=== PATIENT | male | born 1965 | race Caucasian/White ===

== ENCOUNTER 2016-10-14 21:05 | Emergency (ER) | payer MEDICAID ==
[2016-10-14 21:20] VITALS: BP 150/77
[2016-10-14] MEDS ORDERED: Ibuprofen 800 MG Tab PO ONE (21:35)
--- NOTE | 2016-10-14 21:37 | EDM.PDOC ---
ED HPI GENERAL MEDICAL PROBLEM - General Chief Complaint: Lower Extremity Injury/Pain Stated Complaint: SWOLLEN RIGHT CAMERON Time Seen by Provider: 10/14/16 21:31 Source of Information: Reports: Patient History Limitations: Reports: No Limitations - History of Present Illness INITIAL COMMENTS - FREE TEXT/NARRATIVE: Was on a wagon and jumped down landing on right cameron this evening about 7pm. Pain has worsened since then. Has not taken anything for pain. Onset: Today, Sudden Onset Date: 10/14/16 Onset Time: 19:30 Location: Reports: Lower Extremity, Right Quality: Reports: Ache Severity: Mild Improves with: Reports: None Worsens with: Reports: None Context: Reports: Trauma Associated Symptoms: Reports: No Other Symptoms - Related Data Allergies Allergy/AdvReac Type Severity Reaction Status Date / Time tetanus toxoid, adsorbed Allergy Edema Verified 09/20/16 15:06 Home Meds: Home Meds Ezetimibe [Zetia] 5 mg PO DAILY 01/23/13 [History] Ibuprofen [Advil] 200 mg PO Q6H PRN 01/23/13 [History] Rosuvastatin [Crestor] 20 mg PO DAILY 01/23/13 [History] Verapamil [Verapamil ER] 240 mg PO BID 01/23/13 [History] Doxazosin [Doxazosin Mesylate] 2 mg PO BEDTIME 02/13/13 [History] Hydrochlorothiazide 12.5 mg PO DAILY 05/25/14 [History] Past Medical History - Past Health History Medical/Surgical History: Denies Medical/Surgical History Cardiovascular History: Reports: High Cholesterol, Hypertension - Past Surgical History GI Surgical History: Reports: Cholecystectomy Other Musculoskeletal Surgeries/Procedures:: fractures Social & Family History - Tobacco Use Smoking Status *Q: Never Smoker Second Hand Smoke Exposure: No - Caffeine Use Caffeine Use: Reports: Soda - Alcohol Use Days Per Week of Alcohol Use: 0 - Recreational Drug Use Recreational Drug Use: No Review of Systems - Review of Systems Review Of Systems: See Below Constitutional: Reports: No Symptoms Ears: Reports: No Symptoms Nose: Reports: No Symptoms Mouth/Throat: Reports: No Symptoms Respiratory: Reports: No Symptoms Cardiovascular: Reports: No Symptoms GI/Abdominal: Reports: No Symptoms Musculoskeletal: Reports: Leg Pain Skin: Reports: Bruising ED EXAM, GENERAL - Physical Exam Exam: See Below Exam Limited By: No Limitations General Appearance: Alert, WD/WN, No Apparent Distress Ears: Normal External Exam, Normal Canal, Hearing Grossly Normal, Normal TMs Nose: Normal Inspection, Normal Mucosa, No Blood Throat/Mouth: Normal Inspection, Normal Lips, Normal Teeth, Normal Gums, Normal Oropharynx, Normal Voice, No Airway Compromise Head: Atraumatic, Normocephalic Respiratory/Chest: No Respiratory Distress, Lungs Clear, Normal Breath Sounds, No Accessory Muscle Use, Chest Non-Tender Cardiovascular: Normal Peripheral Pulses, Regular Rate, Rhythm, No Edema, No Gallop, No JVD, No Murmur, No Rub Extremities: Leg Pain (anterior cameron with swelling, early bruising noted. Tender over the hematoma, but not the ankle or lower leg area. ROM to ankle and right lower leg normal. ) Neurological: Alert, Oriented, CN II-XII Intact, Normal Cognition, Normal Gait, Normal Reflexes, No Motor/Sensory Deficits Skin Exam: Other (early bruising and hematoma forming to right lower leg) Course - Vital Signs Last Recorded V/S: Last Vital Signs Temp 98.0 F 10/14/16 21:25 Pulse 60 10/14/16 21:25 Resp 20 10/14/16 21:25 BP 150/77 H 10/14/16 21:25 Pulse Ox 95 10/14/16 21:25 Departure - Departure Time of Disposition: 21:39 Disposition: Home, Self-Care 01 Condition: Good Clinical Impression: Traumatic hematoma of right lower leg Qualifiers: Encounter type: initial encounter Qualified Code(s): S80.11XA - Contusion of right lower leg, initial encounter - Discharge Information Instructions: Crush Injury, Fingers or Toes, [id number] Referrals: Dedrick Garcia Sr, MD [Primary Care Provider] - Additional Instructions: Discussed the importance of ice, Ibuprofen and elevation over the next several days. May consider taylor wrap to compress if tolerates. To take aspirin 81mg daily until resolved. Reviewed s/s of blood clot that warrant sooner evaluation. Wound care also may include bacitracin to wound. - Problem List & Annotations (1) Traumatic hematoma of right lower leg SNOMED Code(s): 988302772 Code(s): S80.11XA - CONTUSION OF RIGHT LOWER LEG, INITIAL ENCOUNTER Status : Acute Priority: Low Current Visit: Yes Qualifiers: Encounter type: initial encounter Qualified Code(s): S80.11XA - Contusion of right lower leg, initial encounter
[2016-10-14] MEDS ORDERED: Bacitracin Oint 1 GM U/D Packet TOP ONE (21:39)
== END 2016-10-14 21:50 | disposition home or self-care (01) ==
LOC: JP.ED 21:05
DX: S80.11XA Contusion of right lower leg, initial encounter (principal); I10 Essential (primary) hypertension; E78.00 Pure hypercholesterolemia, unspecified; Z79.899 Other long term (current) drug therapy; Z90.49 Acquired absence of other specified parts of digestive tract; V48.4XXA Person boarding or alighting a car injured in noncollision transport accident, initial encounter
CPT/HCPCS: 99284; A9270

== ENCOUNTER 2017-03-11 11:42 | Emergency (ER) | payer MEDICAID ==
--- NOTE | 2017-03-11 12:36 | EDM.PDOC ---
ED HPI GENERAL MEDICAL PROBLEM - General Chief Complaint: Lower Extremity Injury/Pain Stated Complaint: LEFT CALF PAIN Time Seen by Provider: 03/11/17 12:20 Source of Information: Reports: Patient, Old Records History Limitations: Reports: No Limitations - History of Present Illness INITIAL COMMENTS - FREE TEXT/NARRATIVE: 51 yo male with a pHx of HTN/hyperlipidemia presents with L calf pain. Is worried about DVT. Has no swelling or increased warmth. His mother had a DVT so he is concerned. Did have a recent road trip. Has some restless legs from time to time. No recent exertion or cramps that he recalls. Pain got better yesterday over the course of the day with use, worse again this morning. Onset Date: 03/09/17 Duration: Day(s):, Waxing/Waning (Worse early in the day.) Location: Reports: Lower Extremity, Left Quality: Reports: Ache (tight) Severity: Moderate Improves with: Reports: Other (? 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 (see below) (none) Left Lower Leg Pain Score (Numeric/FACES): 8 - Related Data Allergies Allergy/AdvReac Type Severity Reaction Status Date / Time tetanus toxoid, adsorbed Allergy Edema Verified 03/11/17 11:55 Home Meds: Home Meds Ezetimibe [Zetia] 5 mg PO BEDTIME 01/23/13 [History] Rosuvastatin [Crestor] 20 mg PO DAILY 01/23/13 [History] Verapamil [Verapamil ER] 240 mg PO BID 01/23/13 [History] Doxazosin [Doxazosin Mesylate] 2 mg PO BEDTIME 02/13/13 [History] Hydrochlorothiazide 12.5 mg PO DAILY 05/25/14 [History] Rivaroxaban [Xarelto] 15 mg PO Q12H #42 tablet 03/11/17 [Rx] Past Medical History - Past Health History Medical/Surgical History: Denies Medical/Surgical History HEENT History: Reports: Impaired Vision Cardiovascular History: Reports: High Cholesterol, Hypertension Musculoskeletal History: Reports: Back Pain, Chronic, Fracture, Other (See Below ) Other Musculoskeletal History: R shoulder pain. lt shoulder pain Neurological History: Reports: Other (See Below) Other Neuro History: herniated discs in lower back - Infectious Disease History Infectious Disease History: Reports: Chicken Pox, Mumps - Past Surgical History GI Surgical History: Reports: Cholecystectomy, Colonoscopy Other Musculoskeletal Surgeries/Procedures:: fractures Social & Family History - Tobacco Use Smoking Status *Q: Never Smoker Second Hand Smoke Exposure: No - Caffeine Use Caffeine Use: Reports: Soda - Alcohol Use Days Per Week of Alcohol Use: 0 - Recreational Drug Use Recreational Drug Use: No Review of Systems - Review of Systems Review Of Systems: See Below Constitutional: Reports: No Symptoms Respiratory: Reports: No Symptoms, Cough GI/Abdominal: Reports: No Symptoms Musculoskeletal: Reports: Leg Pain (L calf ), Muscle Pain (L calf), Muscle Stiffness (L calf). Denies: Joint Swelling Skin: Reports: No Symptoms Neurological: Reports: No Symptoms ED EXAM, GENERAL - Physical Exam Exam: See Below Exam Limited By: No Limitations General Appearance: Alert, WD/WN, No Apparent Distress Eye Exam: Bilateral Eye: Normal Inspection Ears: Normal External Exam, Normal Canal, Hearing Grossly Normal Ear Exam: Bilateral Ear: Auricle Normal Nose: Normal Inspection, Normal Mucosa, No Blood Throat/Mouth: Normal Inspection, Normal Lips, Normal Voice, No Airway Compromise Head: Atraumatic, Normocephalic Neck: Normal Inspection Respiratory/Chest: No Respiratory Distress, Lungs Clear, Normal Breath Sounds, No Accessory Muscle Use Cardiovascular: Regular Rate, Rhythm, No Edema Extremities: Normal Inspection, Normal Range of Motion, No Pedal Edema, Other ( L calf tender, no swelling or increased warmth. ). No: Non-Tender Neurological: Alert, Oriented, CN II-XII Intact, Normal Cognition, No Motor/ Sensory Deficits Psychiatric: Normal Affect, Normal Mood Skin Exam: Warm, Dry, Intact, Normal Color, No Rash Lymphatic: No Adenopathy Course - Vital Signs Last Recorded V/S: Last Vital Signs Temp 36.9 C 03/11/17 12:02 Pulse 69 03/11/17 14:09 Resp 16 03/11/17 14:09 BP 128/89 03/11/17 14:09 Pulse Ox 95 03/11/17 14:09 - Orders/Labs/Meds Orders: Active Orders 24 hr Category Date Time Status VL Duplex Lwr Ext Veins Ltd Lt [US] Stat Exams 03/11/17 13:04 Taken Labs: Laboratory Tests 03/11/17 03/11/17 Range/Units 12:39 12:39 D-Dimer, Quantitative 3720 H (0.0-400.0) ng/mL Sodium 139 L (140-148) mmol/L Potassium 3.8 (3.6-5.2) mmol/L Chloride 106 (100-108) mmol/L Carbon Dioxide 25 (21-32) mmol/L Anion Gap 11.8 (5.0-14.0) mmol/L BUN 21 H (7-18) mg/dL Creatinine 1.0 (0.8-1.3) mg/dL Est Cr Clr Drug Dosing 79.87 mL/min Estimated GFR (MDRD) > 60 (>60) Glucose 106 (74-106) mg/dL Calcium 8.5 (8.5-10.1) mg/dL Magnesium 2.0 (1.8-2.4) mg/dL Meds: Medications Discontinued Medications Generic Name Dose Route Start Last Admin Trade Name Freq PRN Reason Stop Dose Admin Rivaroxaban 15 mg 03/11/17 14:55 Xarelto PO 03/11/17 14:56 NOW STA Departure - Departure Time of Disposition: 15:05 Disposition: Home, Self-Care 01 Condition: Fair Clinical Impression: DVT (deep venous thrombosis) Qualifiers: DVT location: lower extremity Affected thrombotic vein of extremity: unspecified vein of extremity Chronicity: acute Laterality: left Qualified Code( s): I82.402 - Acute embolism and thrombosis of unspecified deep veins of left lower extremity - Discharge Information Prescriptions: Rivaroxaban [Xarelto] 15 mg PO Q12H #42 tablet Referrals: Dedrick Garcia Sr, MD [Primary Care Provider] - Forms: ED Department Discharge, ED Return to Work/School Form Additional Instructions: Xarelto 15 mg every 12 hrs with food for 21 days, then 20 mg daily. Elevate the affected leg above the heart. Avoid standing around. Recheck with your doctor later in the week. - My Orders Last 24 Hours: My Active Orders 03/11/17 13:04 VL Duplex Lwr Ext Veins Ltd Lt [US] Stat - Assessment/Plan Last 24 Hours: My Active Orders 03/11/17 13:04 VL Duplex Lwr Ext Veins Ltd Lt [US] Stat
[2017-03-11 14:12] VITALS: BP 128/89
[2017-03-11] MEDS ORDERED: Rivaroxaban 15 MG Tab PO STA (14:55)
== END 2017-03-11 15:28 | disposition home or self-care (01) ==
LOC: JP.ED 11:42
DX: I82.402 Acute embolism and thrombosis of unspecified deep veins of left lower extremity (principal); I10 Essential (primary) hypertension; E78.00 Pure hypercholesterolemia, unspecified; Z79.899 Other long term (current) drug therapy; Z88.7 Allergy status to serum and vaccine
CPT/HCPCS: 36415; 80048; 83735; 85379; 93971; 99284; A9270

== ENCOUNTER 2017-03-31 11:10 | Emergency (ER) | payer MEDICAID ==
[2017-03-31 11:30] VITALS: BP 136/93
--- NOTE | 2017-03-31 11:56 | EDM.PDOC ---
ED HPI GENERAL MEDICAL PROBLEM - General Chief Complaint: General Stated Complaint: HIGH BP/LOW PULSE Time Seen by Provider: 03/31/17 11:45 Source of Information: Reports: Patient, Old Records, RN History Limitations: Reports: No Limitations - History of Present Illness INITIAL COMMENTS - FREE TEXT/NARRATIVE: 51 yo male is here for 2 reasons, a cough and a slow HR. He is on verapamil for HTN and was recently started on Xarelto for a DVT. The pharmacist noted that is his HR gets into the 50's he should be seen right away. He has been on the Xarelto for almost 3 weeks and is feeling fine, but noted a HR yesterday and today at times dipping into the 50's so thought he should be seen. Regarding the cough Dr. Garcia had him on Amox and this week switched him to Duricef. He has been on it for 2 days and still has the cough. He has no pleuritic pain, no fever, no SOB, and no wheezing. He is not on an ACEI. 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 (see below) (on Xarelto and Duricef) Denies Pain Score (Numeric/FACES): 0 - Related Data Allergies Allergy/AdvReac Type Severity Reaction Status Date / Time tetanus toxoid, adsorbed Allergy Edema Verified 03/31/17 11:24 Home Meds: Home Meds Ezetimibe [Zetia] 5 mg PO BEDTIME 01/23/13 [History] Rosuvastatin [Crestor] 20 mg PO DAILY 01/23/13 [History] Verapamil [Verapamil ER] 240 mg PO BID 01/23/13 [History] Doxazosin [Doxazosin Mesylate] 2 mg PO BEDTIME 02/13/13 [History] Hydrochlorothiazide 12.5 mg PO DAILY 05/25/14 [History] Rivaroxaban [Xarelto] 15 mg PO Q12H #42 tablet 03/11/17 [Rx] Cefadroxil [Duricef] 500 mg PO BID 03/31/17 [History] Past Medical History - Past Health History Medical/Surgical History: Denies Medical/Surgical History HEENT History: Reports: Impaired Vision Cardiovascular History: Reports: High Cholesterol, Hypertension Musculoskeletal History: Reports: Back Pain, Chronic, Fracture, Other (See Below ) Other Musculoskeletal History: R shoulder pain blood clot l leg. lt shoulder pain Neurological History: Reports: Other (See Below) Other Neuro History: herniated discs in lower back - Infectious Disease History Infectious Disease History: Reports: Chicken Pox - Past Surgical History GI Surgical History: Reports: Cholecystectomy, Colonoscopy Other Musculoskeletal Surgeries/Procedures:: fractures Social & Family History - Tobacco Use Smoking Status *Q: Never Smoker Second Hand Smoke Exposure: No - Caffeine Use Caffeine Use: Reports: Soda - Alcohol Use Days Per Week of Alcohol Use: 0 - Recreational Drug Use Recreational Drug Use: No ED ROS GENERAL - Review of Systems Review Of Systems: See Below Constitutional: Reports: No Symptoms HEENT: Reports: No Symptoms Respiratory: Reports: Cough, Sputum (at times). Denies: Shortness of Breath, Wheezing, Pleuritic Chest Pain, Hemoptysis Cardiovascular: Reports: No Symptoms Endocrine: Reports: No Symptoms GI/Abdominal: Reports: No Symptoms : Reports: No Symptoms Musculoskeletal: Reports: No Symptoms Skin: Reports: No Symptoms Neurological: Reports: No Symptoms ED EXAM, GENERAL - Physical Exam Exam: See Below Exam Limited By: No Limitations General Appearance: Alert, WD/WN, No Apparent Distress Eye Exam: Bilateral Eye: Normal Inspection Ears: Normal External Exam, Normal Canal, Hearing Grossly Normal, Normal TMs Ear Exam: Bilateral Ear: Auricle Normal, Canal Normal, TM normal Nose: Normal Inspection, Normal Mucosa, No Blood Throat/Mouth: Normal Inspection, Normal Lips, Normal Oropharynx, Normal Voice, No Airway Compromise Head: Atraumatic, Normocephalic Neck: Normal Inspection, Supple Respiratory/Chest: No Respiratory Distress, Lungs Clear, Normal Breath Sounds Cardiovascular: Regular Rate, Rhythm, No Edema. No: Bradycardia GI/Abdominal: Normal Bowel Sounds, Soft, Non-Tender Back Exam: Normal Inspection Extremities: Normal Inspection Neurological: Alert, Oriented, CN II-XII Intact, Normal Cognition, No Motor/ Sensory Deficits Psychiatric: Normal Affect, Normal Mood Skin Exam: Warm, Dry, Intact, Normal Color, No Rash Course - Vital Signs Last Recorded V/S: Last Vital Signs Temp 35.9 C 03/31/17 11:36 Pulse 74 03/31/17 11:36 Resp 16 03/31/17 11:36 BP 136/93 H 03/31/17 11:36 Pulse Ox 96 03/31/17 11:36 Departure - Departure Time of Disposition: 11:57 Disposition: Home, Self-Care 01 Condition: Good Clinical Impression: Cough - Discharge Information Referrals: Dedrick Garcia Sr, MD [Primary Care Provider] - Forms: ED Department Discharge Additional Instructions: Continue current medications. Recheck with your provider next week. Return for fever or SOB or bloody sputum.
== END 2017-03-31 12:22 | disposition home or self-care (01) ==
LOC: JP.ED 11:10
DX: R05 Cough (principal); I10 Essential (primary) hypertension; E78.00 Pure hypercholesterolemia, unspecified; Z79.899 Other long term (current) drug therapy; Z88.7 Allergy status to serum and vaccine
CPT/HCPCS: 99283

== ENCOUNTER 2017-06-29 08:29 | Emergency (ER) | payer MEDICAID ==
[2017-06-29] MEDS ORDERED: Ketorolac 60 MG/2 ML SDV IM ONE (09:21)
--- NOTE | 2017-06-29 09:22 | EDM.PDOC ---
ED HPI GENERAL MEDICAL PROBLEM - General Chief Complaint: Cardiovascular Problem Stated Complaint: BLOOD PRESSUE IS HIGH AND HEADACHE Time Seen by Provider: 06/29/17 09:10 Source of Information: Reports: Patient, RN Notes Reviewed History Limitations: Reports: No Limitations - History of Present Illness INITIAL COMMENTS - FREE TEXT/NARRATIVE: 51-year-old gentleman presents to the emergency department today complaint of palpitations and headache as well as poorly controlled blood pressure, he states over the last couple days she's been feeling poorly has had issues with his blood pressure diastolic is 110 systolics 160s, did feel palpitations yesterday is currently on blood pressure medications which she takes. This is not the worst headache of his life - Related Data Allergies Allergy/AdvReac Type Severity Reaction Status Date / Time tetanus toxoid, adsorbed Allergy Edema Verified 06/29/17 08:56 Home Meds: Home Meds Rosuvastatin [Crestor] 20 mg PO DAILY 01/23/13 [History] Doxazosin [Doxazosin Mesylate] 2 mg PO BEDTIME 02/13/13 [History] Hydrochlorothiazide 12.5 mg PO DAILY 05/25/14 [History] Rivaroxaban [Xarelto] 15 mg PO Q12H #42 tablet 03/11/17 [Rx] Lisinopril 10 mg PO DAILY #30 tablet 06/29/17 [Rx] Past Medical History HEENT History: Reports: Impaired Vision Cardiovascular History: Reports: High Cholesterol, Hypertension Musculoskeletal History: Reports: Back Pain, Chronic, Other (See Below) Other Musculoskeletal History: bilat shoulder pain Neurological History: Reports: Other (See Below) Other Neuro History: herniated discs in lower back - Infectious Disease History Infectious Disease History: Reports: Chicken Pox - Past Surgical History GI Surgical History: Reports: Cholecystectomy, Colonoscopy Other Musculoskeletal Surgeries/Procedures:: fractures Social & Family History - Tobacco Use Smoking Status *Q: Never Smoker - Caffeine Use Caffeine Use: Reports: Soda ED ROS GENERAL - Review of Systems Review Of Systems: See Below Constitutional: Reports: No Symptoms HEENT: Reports: No Symptoms Respiratory: Reports: No Symptoms Cardiovascular: Reports: Blood Pressure Problem GI/Abdominal: Reports: No Symptoms : Reports: No Symptoms Musculoskeletal: Reports: No Symptoms Skin: Reports: No Symptoms Neurological: Reports: Headache ED EXAM, GENERAL - Physical Exam Exam: See Below Free Text/Narrative:: General: Male, not in any distress, alert and oriented x3 HEENT: head is atraumatic normocephalic, eyes pupils equal round reactive to light, sclera clear no conjunctivitis appreciated. Ears tympanic membranes clear and conde landmarks and light reflex are present bilaterally canals are clear. Nose no septal deviation, nares are clear, no blood present. Mouth mucosa is moist and pink no erythema or exudate noted in soft palate, tongue is midline uvula is midline, dentition is intact. Neck: Supple no thyromegaly no tracheal deviation. Nodes: Cervical nodes subclavicular nodes nontender no palpable lymphadenopathy noted. Lungs: clear to auscultation bilaterally with symmetrical respirations, no adventitious noise appreciated. CV: Regular rate and rhythm S1 and S2 appreciated no murmurs rubs or gallops noted. Abdomen: Soft, nontender, no palpable masses or organomegaly appreciated, no distention no guarding bowel sounds are present, . Neuro: Cranial nerves II through XII grossly intact Skin: Warm and dry, intact Extremities: No lower extremity edema appreciated, Course - Vital Signs Last Recorded V/S: Last Vital Signs Temp 96.1 F 06/29/17 09:07 Pulse 64 06/29/17 10:43 Resp 16 06/29/17 09:07 BP 147/90 H 06/29/17 10:43 Pulse Ox 100 06/29/17 10:43 - Orders/Labs/Meds Orders: Active Orders 24 hr Category Date Time Status Cardiac Monitoring [RC] .As Directed Care 06/29/17 09:17 Active EKG Documentation Completion [RC] ASDIRECTED Care 06/29/17 09:19 Active UA W/MICROSCOPIC [URIN] Stat Lab 06/29/17 10:00 Ordered EKG 12 Lead [EK] Stat Ther 06/29/17 09:18 Ordered Labs: Laboratory Tests 06/29/17 06/29/17 06/29/17 Range/Units 09:20 09:20 10:00 WBC 5.9 (4.5-11.0) K/uL RBC 5.08 (4.30-5.90) M/uL Hgb 15.3 H (12.0-15.0) g/dL Hct 44.7 (40.0-54.0) % MCV 88 (80-98) fL MCH 30 (27-31) pg MCHC 34 (32-36) % Plt Count 173 (150-400) K/uL Neut % (Auto) 64 (36-66) % Lymph % (Auto) 25 (24-44) % Carter % (Auto) 9 H (2-6) % Eos % (Auto) 1 L (2-4) % Baso % (Auto) 0 (0-1) % Sodium 141 (140-148) mmol/L Potassium 3.4 L (3.6-5.2) mmol/L Chloride 106 (100-108) mmol/L Carbon Dioxide 27 (21-32) mmol/L Anion Gap 11.4 (5.0-14.0) mmol/L BUN 24 H (7-18) mg/dL Creatinine 1.2 (0.8-1.3) mg/dL Est Cr Clr Drug Dosing 66.56 mL/min Estimated GFR (MDRD) > 60 (>60) Glucose 93 (74-106) mg/dL Calcium 8.6 (8.5-10.1) mg/dL Total Bilirubin 0.6 (0.2-1.0) mg/dL AST 23 (15-37) U/L ALT 34 (12-78) U/L Alkaline Phosphatase 44 L (46-116) U/L Troponin I < 0.017 (0.000-0.056) ng/mL Total Protein 6.3 L (6.4-8.2) g/dL Albumin 3.5 (3.4-5.0) g/dL Globulin 2.8 (2.3-3.5) g/dL Albumin/Globulin Ratio 1.2 (1.2-2.2) Urine Color Yellow Urine Appearance Clear Urine pH 5.0 (4.5-8.0) Ur Specific [place] 1.020 (1.008-1.030) Urine Protein Negative (NEGATIVE) mg/dL Urine Glucose (UA) Normal (NEGATIVE) mg/dL Urine Ketones Negative (NEGATIVE) mg/dL Urine Occult Blood Negative (NEGATIVE) Urine Nitrite Negative (NEGAITVE) Urine Bilirubin Negative (NEGATIVE) Urine Urobilinogen Normal (NORMAL) mg/dL Ur Leukocyte Esterase Negative (NEGATIVE) Urine RBC Not seen (0-5) Urine WBC Not seen (0-5) Ur Epithelial Cells Not seen Amorphous Sediment Rare Urine Bacteria Not seen Urine Mucus Not seen Meds: Medications Discontinued Medications Generic Name Dose Route Start Last Admin Trade Name Nuris PRN Reason Stop Dose Admin Acetaminophen 650 mg 06/29/17 10:57 06/29/17 11:16 Tylenol PO 06/29/17 10:58 650 mg NOW ONE Administration Ketorolac Tromethamine 60 mg 06/29/17 09:21 06/29/17 09:30 Toradol IM 06/29/17 09:22 60 mg ONETIME ONE Administration Lisinopril 10 mg 06/29/17 09:56 06/29/17 10:11 Prinivil PO 06/29/17 09:57 10 mg ONETIME ONE Administration Departure - Departure Time of Disposition: 12:01 Disposition: Home, Self-Care 01 Condition: Good Clinical Impression: Essential hypertension Prescriptions: Lisinopril 10 mg PO DAILY #30 tablet Referrals: Alexandr Remy MD [Ordering Only Provider] - Forms: ED Department Discharge Additional Instructions: Start the lisinopril one tablet daily tomorrow, please follow-up with your primary care provider next week for reevaluation - My Orders Last 24 Hours: My Active Orders 06/29/17 09:17 Cardiac Monitoring [RC] .As Directed 06/29/17 09:18 EKG 12 Lead [EK] Stat 06/29/17 09:19 EKG Documentation Completion [RC] ASDIRECTED 06/29/17 10:00 UA W/MICROSCOPIC [URIN] Stat - Assessment/Plan Last 24 Hours: My Active Orders 06/29/17 09:17 Cardiac Monitoring [RC] .As Directed 06/29/17 09:18 EKG 12 Lead [EK] Stat 06/29/17 09:19 EKG Documentation Completion [RC] ASDIRECTED 06/29/17 10:00 UA W/MICROSCOPIC [URIN] Stat Plan: Assessment Acuity = acute Site and laterality = poorly controlled hypertension Etiology = unclear etiology Manifestations = headache now improved Location of injury = Home Lab values = CBC, CMP, troponin, urinalysis, EKG, chest x-ray all unremarkable Plan He received good relief from this at a combination Toradol and Tylenol, blood pressure responded to lisinopril systolics 120s over diastolics in the 80s, prescription written for lisinopril 10 mg 1 tab by mouth daily total #30 he is to follow-up with his primary care provider next week for reevaluation This note was dictated using [employer] voice recognition software please call with any questions on syntax or grammar.
[2017-06-29] MEDS ORDERED: Lisinopril 10 MG Tab PO ONE (09:56)
--- NOTE | 2017-06-29 10:24 | CR ---
Chest 2V FINDINGS: The heart and vascular structures are normal in appearance. No infiltrates or effusions are demonstrated. The skeletal structures are unremarkable. IMPRESSION: Negative exam.
[2017-06-29] MEDS ORDERED: Acetaminophen 325 MG Tab PO ONE (10:57)
[2017-06-29 12:18] VITALS: BP 123/90
== END 2017-06-29 12:17 | disposition home or self-care (01) ==
LOC: JP.ED 08:29
DX: I10 Essential (primary) hypertension (principal); E78.00 Pure hypercholesterolemia, unspecified; Z88.7 Allergy status to serum and vaccine; Z79.899 Other long term (current) drug therapy
CPT/HCPCS: 36415; 71046; 80053; 81001; 84484; 85025; 93005; 99284; A9270; J1885

== ENCOUNTER 2018-04-15 06:33 | Day surgery (SDC) | payer MEDICAID ==
[2018-04-15] MEDS ORDERED: Acetaminophen 500 MG Tab PO ONE (07:00)
[2018-04-15] MEDS ORDERED: ceFAZolin 1 GM in Premix Bag 1 BAG IV ONE (07:00)
[2018-04-15] MEDS ORDERED: Sodium Chloride 0.9% 1,000 ML IV SCH (07:00)
[2018-04-15] MEDS ORDERED: Bupivacaine 0.5% 50 ML MDV ONE (07:05)
[2018-04-15] MEDS ORDERED: Bupivacaine 0.25% 10 ML SDV ONE (07:05)
[2018-04-15] MEDS ORDERED: Glycopyrrolate 0.2 MG/ML 5 ML MDV ONE (07:18)
[2018-04-15] MEDS ORDERED: Dexamethasone 4 MG/ML SDV ONE (07:18)
[2018-04-15] MEDS ORDERED: Ondansetron 4 MG/2 ML SDV ONE (07:18)
[2018-04-15] MEDS ORDERED: Rocuronium 50 MG/5 ML Vial ONE (07:18)
[2018-04-15] MEDS ORDERED: fentaNYL 250 MCG/5 ML SDV ONE (07:18)
[2018-04-15] MEDS ORDERED: Succinylcholine 200 MG/10 ML MDV ONE (07:18)
[2018-04-15] MEDS ORDERED: Propofol 200 MG/20 ML SDV ONE (07:18)
[2018-04-15] MEDS ORDERED: Neostigmine Methylsulfate 1 MG/ML 5 ML Syringe ONE (07:18)
[2018-04-15] MEDS ORDERED: Bupivacaine 0.5% 30 ML SDV ONE (07:19)
[2018-04-15] MEDS ORDERED: Lactated Ringers 1,000 ML ONE (09:02)
[2018-04-15] MEDS ORDERED: Acetaminophen/oxyCODONE 325-5 MG Tab PO PRN (10:55)
[2018-04-15] MEDS ORDERED: Ketorolac 60 MG/2 ML SDV IM ONE (11:15)
[2018-04-15 12:57] VITALS: BP 135/86
--- NOTE | 2018-04-15 14:16 | PCM.OPNOTE ---
- General Post-Op/Procedure Note Date of Surgery/Procedure: 04/15/18 Operative Procedure(s): Arthroscopic subacromial decompression with acromioplasty and open rotator cuff repair Findings: Large retracted tear of the supra and infraspinatus, fraying of the superior labrum and biceps tendon Pre Op Diagnosis: Large, chronic rotator cuff tear right shoulder Post-Op Diagnosis: Large chronic tear of right rotator cuff, degenerative fraying of superior labrum and biceps tendon Anesthesia Technique: General ET Tube, Regional Block Primary Surgeon: Dedrick Moore EBL in mLs: 100 Complications: None Condition: Good Free Text/Narrative:: Indications: 52-year-old [id number] male with history of chronic right shoulder pain. Pain is been getting worse and strength has been decreasing over the past several weeks. Examination and MRI are consistent with a large retracted rotator cuff tear. Appears to be approximately 3 to 3-1/2 cm in size. Has some muscle atrophy but no significant fatty infiltration. Now presents for right rotator cuff repair. Risks, benefits and potential complications were discussed. I did inform him that the large size of the tear can be problematic, increase his recovery time, and potentially be difficult to repair completely. Also informed him of the higher risk of re-tear or incomplete healing. He agrees to proceed. Procedure: After adequate anesthesia was obtained with a scalene block and general anesthesia patient was placed in a lateral decubitus position and secured with the beanbag. 2 g of Ancef was given preoperatively. The right shoulder was then prepped and draped in a sterile fashion. 10 pounds of traction was placed in the shoulder traction unit. Standard posterior portal was established and the glenohumeral joint was inspected. This revealed degenerative fraying of the superior and anterior labrum. Mild fraying of the biceps tendon was also present at the entrance of the biceps groove. Articular surfaces of the glenoid and humeral head were intact. Subscapularis is intact. A large full-thickness tear of the supraspinatus and infraspinatus is identified. Anterior portal is established and a shaver is used to debride the degenerative changes on the labrum and biceps. Biceps was evaluated and the damaged area consisted of 10% to 15% of the tendon. Decision was made not to proceed with a biceps tenotomy. Scope was then placed into the subacromial space. Bursa was cleared for visualization. Undersurface of the coraco-acromial ligament showed fraying insistent with impingement. An ablation wand was used to debride the ligament from the undersurface of the acromion. Mild to moderate acromial hook was present. A bur was then used to perform an acromioplasty removing approximately 4-5 mm from the undersurface. The edge of the rotator cuff was identified. A grasper was used to assess the mobility of the cuff. This was retracted and scarred. Elevator was used to mobilize the cuff. Supraspinatus in particular showed significant retraction. Due to the size of the tear and retraction, decision was made to switch to an open procedure. Prior to removal of the scope a bur was used to lightly decorticate the footprint of the rotator cuff. Lateral portal was then extended superiorly and inferiorly. The deltoid muscle was bluntly divided in line with its fibers. A self-retaining retractor was placed. Hemostasis was obtained with electrocautery. The superior surface of the tuberosity and rotator cuff were inspected. Arnold was used to complete decortication of the footprint. Further mobilization of the cuff was accomplished with an elevator and decision was made to proceed with convergence of margins. Ortho-cord suture was placed a few millimeters lateral to the retracted corner of the tear. This was then tied down converging a portion of the tear for better coverage. Suture was cut. This was then repeated a few more millimeters laterally again reapproximating the edges of the tear together and providing coverage of the humeral head. Two 5.5 mm Mitek [place] anchors were placed. Excellent purchase was obtained with the anchors. Beginning with the anterior flap all 4 limbs of one of the suture anchors was brought up through the tendon 7-8 mm from the edge of the tear back into solid tendon tissue. One pair of sutures from the posterior anchor was placed through the posterior flap. The other set was divided with one limb brought up through the posterior flap and the other limb through the anterior flap. The 2 anterior suture pairs were then tied down securing the tendon to the tuberosity in excellent position. The most posterior one was then tied in a similar fashion. The suture crossing over the 2 flaps was tied last and this also provided excellent approximation of the tendon to the tuberosity. 2 of the suture sets were cut. The remaining 2 were used to provide a suture bridge over the edge of the tendon for a lateral row. A punch was used to make a hole to receive the anchor just off the edge of the tuberosity. All 4 limbs of the sutures were brought through the anchor. The anchor was placed over the prepared hole and the sutures were tensioned. This was then tightened down providing excellent approximation of the edge of the tear. Sutures were cut. The arm was taken through range of motion internal and external rotation with good stability of the repair noted. Incision was irrigated. Deltoid was repaired in a [id number] fashion with 0 Vicryl. Skin was closed with 2-0 Vicryl in a running 3-0 Monocryl subcuticular stitch. Portal sites were closed with 3-0 Monocryl. Steri-Strips were applied. Sterile dressing was then placed. Patient tolerated the procedure well and there were no complications he was taken from the operating room in stable condition with a Sling Shot abduction sling.
== END 2018-04-15 12:15 | disposition home or self-care (01) ==
LOC: JP.SDS 06:33
PROVIDERS: ATTEND Specialist
DX: M75.121 Complete rotator cuff tear or rupture of right shoulder, not specified as traumatic (principal); I10 Essential (primary) hypertension; E66.9 Obesity, unspecified; Z68.29 Body mass index [BMI] 29.0-29.9, adult; G89.29 Other chronic pain; E78.00 Pure hypercholesterolemia, unspecified; Z86.718 Personal history of other venous thrombosis and embolism; Z79.82 Long term (current) use of aspirin; Z79.899 Other long term (current) drug therapy; Z88.7 Allergy status to serum and vaccine
CPT/HCPCS: 23130; 23412; 36415; 80053; 85027; A9270; J0330; J0690; J1100; J1885; J2405; J2704; J2710; J3010; J3490; J7030; J7120

== ENCOUNTER 2020-03-15 05:25 | Day surgery (SDC) | payer MEDICAID ==
[2020-03-15] MEDS ORDERED: Dextrose 5%-Lactated Ringers 1,000 ML IV SCH (05:45)
[2020-03-15] MEDS ORDERED: ceFAZolin 2 GM in Sodium Chloride 0.9% 50 ML IV ONE (06:15)
[2020-03-15] MEDS ORDERED: Acetaminophen 500 MG Tab PO ONE (06:16)
[2020-03-15] MEDS ORDERED: Lidocaine 1% with EPINEPHrine 1:100,000 50 ML MDV ONE (06:43)
[2020-03-15] MEDS ORDERED: Bupivacaine 0.5% 50 ML MDV ONE (06:43)
[2020-03-15] MEDS ORDERED: Propofol 200 MG/20 ML SDV ONE ×2 (07:02→07:33)
[2020-03-15] MEDS ORDERED: fentaNYL 100 MCG/2 ML SDV ONE (07:02)
[2020-03-15] MEDS ORDERED: Midazolam 1 MG/ML 2 ML SDV ONE (07:02)
[2020-03-15] MEDS ORDERED: ceFAZolin 2 GM in Premix Bag 1 BAG IV ONE (07:15)
[2020-03-15] MEDS ORDERED: Acetaminophen/HYDROcodone 325-5 MG Tab PO ONE (08:55)
[2020-03-15 10:13] VITALS: BP 134/75; PULSE 62
--- NOTE | 2020-03-21 16:10 | OR ---
DATE OF PROCEDURE: 03/15/2020 SURGEON: Kade Ledesma MD PREOPERATIVE DIAGNOSIS: Left inguinal hernia. POSTOPERATIVE DIAGNOSES: 1. Incarcerated left inguinal hernia. 2. Left ilioinguinal and left iliohypogastric nerves, at risk for nerve entrapped postoperative pain. 3. Subfascial lipoma overlying the inguinal floor. OPERATIVE PROCEDURE: 1. Left inguinal exploration with: a. Repair of incarcerated left inguinal hernia with mesh (62147). b. Excision of portion of left ilioinguinal nerve (98794). c. Excision of portion of left iliohypogastric nerve (33481). d. Excision of subfascial lipoma overlying the inguinal floor (51171). ANESTHESIA: Local plus IV sedation. INDICATIONS FOR PROCEDURE: This is a 54-year-old male presenting with an increasingly symptomatic nonreducible left inguinal hernia. Plan is to proceed with inguinal exploration and repair of the hernia with mesh plug technique. Potential risks of the procedure including bleeding, infection, injury to underlying viscera, problems with mesh becoming infected or the hernia recurring as well as possible chronic pain following the procedure were gone over, that we will often divide some nerves in the area that might be entrapped by subsequent scar resulting in chronic postoperative pain, but in lieu of that, some enterocutaneous abscess was gone over as well, and the patient wishes to proceed. DETAILS OF PROCEDURE: The patient was taken to the operating room and placed in a supine position. After IV sedation was administered, the abdomen and groin areas were prepped and draped. The left inguinal area was anesthetized with 1% lidocaine mixed with Marcaine and a standard left inguinal incision was made and carried down through the skin and subcutaneous tissue. The external oblique aponeurosis was then divided. Subaponeurotic flaps were raised superiorly and inferiorly. The patient was noted to have an indirect inguinal hernia with a large amount of fat and probably some of the sigmoid colon within the hernia sac. The hernia sac was dissected free after division of the cremasteric fibers and reduced. During the course of the dissection, the patient was noted to have a 3.5 cm lipoma located in the inguinal floor. This was apart from what would be considered a lipoma of the cord i.e. it is a separate process and this was excised and sent for histologic evaluation. At this point, it appeared that the ilioinguinal nerve and iliohypogastric nerve on this side will likely be caught up in the postoperative scar formation and were divided and excised out to the lateral aspect of the incision. An extra large mesh plug was then placed into the defect. This defect was too lateral enough to apply titanium screws into the Rinku's ligament, but was affixed medially, superiorly, inferiorly, and laterally to the conjoint tendon and the inferior aspect to the shelving portion of the inguinal floor along with horizontal mattress sutures of 2-0 Vicryl stitch. The conjoint tendon was then tacked down to the shelving portion of the inguinal floor with running 0 Vicryl stitch as well at this point. Flat portion of the mesh plug system was then placed across the inguinal floor and sutured lateral to the cord structures as well as overlying the pubic tubercle with 2-0 Vicryl stitch. The external oblique aponeurosis was approximated with 3-0 Vicryl stitch as was the subcutaneous tissue, and the skin closed with 4-0 Vicryl subcuticular stitch, and dressing applied. The patient was taken to the recovery room in satisfactory condition. Physician case assistant, Britney Hernandez, played an essential role in assisting in this case, helping to position the patient, retract structures as needed, as well as suturing and cutting sutures when indicated. Her presence improved patient safety and decreased operative time. Kade Ledesma MD /[id number]
== END 2020-03-15 10:34 | disposition home or self-care (01) ==
LOC: JP.SDS 05:25
PROVIDERS: ATTEND Surgery
DX: K40.30 Unilateral inguinal hernia, with obstruction, without gangrene, not specified as recurrent (principal); D17.6 Benign lipomatous neoplasm of spermatic cord; I10 Essential (primary) hypertension; E66.9 Obesity, unspecified; Z88.7 Allergy status to serum and vaccine; Z68.30 Body mass index [BMI] 30.0-30.9, adult
CPT/HCPCS: 49507; 88302; 88304; A9270; C1781; J0690; J2250; J2704; J3010; J3490; J7121

== ENCOUNTER 2022-05-04 07:39 | Emergency (ER) | payer MEDICAID ==
[2022-05-04 07:50] VITALS: BP 149/93; PULSE 64
== END 2022-05-04 09:33 | disposition home or self-care (01) ==
LOC: JP.ED 07:39
DX: S86.111A Strain of other muscle(s) and tendon(s) of posterior muscle group at lower leg level, right leg, initial encounter (principal); E86.0 Dehydration; E78.00 Pure hypercholesterolemia, unspecified; I10 Essential (primary) hypertension; Z88.7 Allergy status to serum and vaccine; Z79.82 Long term (current) use of aspirin; Z79.899 Other long term (current) drug therapy; Z79.01 Long term (current) use of anticoagulants
CPT/HCPCS: 36415; 80048; 83735; 85025; 85379; 99283

== ENCOUNTER 2022-09-27 10:31 | Emergency (ER) | payer MEDICAID ==
[2022-09-27 12:24] LABS: BASOPHILS ABSOLUTE AUTO 0.03 K/uL (0.00-0.10); BASOPHILS PERCENT AUTO 0.5 % (0.1-1.3); EOSINOPHILS PERCENT AUTO 1.5 % (0.0-5.4); HEMATOCRIT 41.8 % (38.4-49.7); HEMOGLOBIN 14.4 g/dL (12.9-16.9); IMMATURE GRAN ABSOLUTE AUTO 0.03 K/uL (0.00-0.23); IMMATURE GRAN PERCENT AUTO 0.5 % (0.0-0.7); LYMPHOCYTES ABSOLUTE AUTO 0.94 K/uL (0.8-3.3); LYMPHOCYTES PERCENT AUTO 14.5 % (11.4-47.7); MEAN CORPUSCULAR HEMOGLOBIN 30.1 pg (31.6-35.5); MEAN CORPUSCULAR HGB CONC 34.4 g/dL (31.6-35.5); MEAN CORPUSCULAR VOLUME 87.4 fL (81.4-99.0); MONOCYTES ABSOLUTE AUTO 0.65 K/uL (0.20-0.90); NEUTROPHILS ABSOLUTE AUTO 4.72 K/uL (1.0-7.6); PLATELET COUNT,PLT 219 K/uL (130-375); RED BLOOD CELL COUNT 4.78 M/uL (4.14-5.76); WHITE BLOOD CELL COUNT,WBC 6.5 K/uL (3.2-11.0)
[2022-09-27] MEDS ORDERED: Sodium Chloride 0.9% 1,000 ML IV SCH (12:30)
[2022-09-27 12:45] LABS: A/G RATIO 0.7 (1.2-2.2); ALANINE AMINOTRANSFERASE,ALT 317 U/L (12-78); ALBUMIN 2.8 g/dL (3.4-5.0); ALKALINE PHOSPHATASE 188 U/L (46-116); ASPARTATE AMNIOTRANSFERASE,AST 137 U/L (15-37); BILIRUBIN TOTAL 1.1 mg/dL (0.2-1.0); BLOOD UREA NITROGEN,BUN 21 mg/dL (7-18); CALCIUM 9.2 mg/dL (8.5-10.1); CARBON DIOXIDE,CO2 32 mmol/L (21-32); CHLORIDE,CL 99 mmol/L (100-108); CREATININE 1.2 mg/dL (0.8-1.3); EST CRCL DRUG DOSING (CG) 61.97 mL/min; ESTIMATED GFR 70 mL/min (>60); GLUCOSE RANDOM 103 mg/dL (74-106); POTASSIUM,K 3.5 mmol/L (3.6-5.2); PROTEIN TOTAL,TP 7.1 g/dL (6.4-8.2); SODIUM,NA 138 mmol/L (140-148)
[2022-09-27 13:18] LABS: ANION GAP 10.5 mmol/L (5.0-14.0)
[2022-09-27 13:28] LABS: APPEARANCE,URINE SLIGHTLY CLOUDY (CLEAR); BILIRUBIN,URINE SMALL (NEGATIVE); COLOR,URINE YELLOW (YELLOW); GLUCOSE,URINE NEGATIVE (NEGATIVE); KETONES,URINE NEGATIVE (NEGATIVE); LEUKOCYTE ESTERASE,URINE NEGATIVE (NEGATIVE); NITRITE,URINE NEGATIVE (NEGATIVE); OCCULT BLOOD,URINE NEGATIVE (NEGATIVE); PROTEIN,URINE TRACE mg/dL (NEGATIVE)
[2022-09-27 13:34] LABS: AMORPHOUS SEDIMENT,URINE NOT SEEN; BACTERIA,URINE RARE; EPITHELIAL CELLS,URINE RARE; MUCUS,URINE NOT SEEN; RBC,URINE 0-5 (0-5); WBC,URINE 0-5 (0-5)
[2022-09-27 13:58] VITALS: BP 120/91; PULSE 65
== END 2022-09-27 14:59 | disposition home or self-care (01) ==
LOC: JP.ED 10:31
DX: R55 Syncope and collapse (principal); E86.0 Dehydration; E78.00 Pure hypercholesterolemia, unspecified; I10 Essential (primary) hypertension; Z79.82 Long term (current) use of aspirin; Z79.899 Other long term (current) drug therapy; Z88.7 Allergy status to serum and vaccine
CPT/HCPCS: 36415; 80053; 81001; 85025; 93005; 96360; 99284; J7030

== ENCOUNTER 2023-03-23 10:30 | Day surgery (SDC) | payer MEDICAID ==
[2023-03-23] MEDS: Lactated Ringers 1,000 ML IV SCH (11:35)
[2023-03-23] MEDS ORDERED: Propofol 200 MG/20 ML SDV ONE (12:21)
[2023-03-23] MEDS ORDERED: Midazolam 1 MG/ML 2 ML SDV ONE (12:21)
[2023-03-23] MEDS ORDERED: fentaNYL 100 MCG/2 ML SDV ONE (12:21)
[2023-03-23 15:05] VITALS: BP 124/80; PULSE 71
== END 2023-03-23 15:10 | disposition home or self-care (01) ==
LOC: JP.SDS 10:30
PROVIDERS: ATTEND Student in an Organized Health Care Education/Training Program
DX: Z12.11 Encounter for screening for malignant neoplasm of colon (principal); D12.5 Benign neoplasm of sigmoid colon; K63.5 Polyp of colon; K57.30 Diverticulosis of large intestine without perforation or abscess without bleeding
CPT/HCPCS: 45380; 88305; J2250; J2704; J3010; J7120

== ENCOUNTER 2024-04-04 21:43 | Emergency (ER) | payer MEDICAID ==
[2024-04-04 22:19] VITALS: BP 175/102; PULSE 59
[2024-04-04] MEDS: Lidocaine 2% 5 ML SDV INJECT ONE ×2 (23:20→23:37)
[2024-04-04] MEDS: Lidocaine 2% 20 ML MDV ONE (23:37)
== END 2024-04-04 23:30 | disposition home or self-care (01) ==
LOC: JP.ED 21:43
DX: S60.450A Superficial foreign body of right index finger, initial encounter (principal); I10 Essential (primary) hypertension; R51.9 Headache, unspecified; E78.00 Pure hypercholesterolemia, unspecified; Z90.49 Acquired absence of other specified parts of digestive tract; Z88.7 Allergy status to serum and vaccine; Z79.899 Other long term (current) drug therapy; W45.8XXA Other foreign body or object entering through skin, initial encounter
CPT/HCPCS: 64450; 99283; J2003

== ENCOUNTER 2024-09-22 08:16 | Emergency (ER) | payer MEDICAID ==
[2024-09-22 09:52] LABS: INR 1.0
[2024-09-22] MEDS: Aspirin 325 MG Tab.EC PO ONE (09:58)
[2024-09-22 09:59] VITALS: PULSE 58
[2024-09-22 10:00] LABS: PLATELET COUNT,PLT 169.0 K/uL (130-375); RED BLOOD CELL COUNT 5.1 M/uL (4.14-5.76); WHITE BLOOD CELL COUNT,WBC 4.9 K/uL (3.2-11.0)
[2024-09-22 10:03] LABS: A/G RATIO 1.2 (1.2-2.2); ALANINE AMINOTRANSFERASE,ALT 40 U/L (12-78); ASPARTATE AMNIOTRANSFERASE,AST 21 U/L (15-37); BILIRUBIN TOTAL 0.6 mg/dL (0.2-1.0); BLOOD UREA NITROGEN,BUN 18 mg/dL (7-18); CARBON DIOXIDE,CO2 28 mmol/L (21-32); CHLORIDE,CL 108 mmol/L (100-108); CREATININE 1.1 mg/dL (0.8-1.3); EST CRCL DRUG DOSING (CG) 65.93 mL/min; ESTIMATED GFR 76 mL/min (>60); GLUCOSE RANDOM 106 mg/dL (74-106); POTASSIUM,K 4.0 mmol/L (3.6-5.2); PRO B-TYPE NATRIUR PEPT,BNPPRO 53 pg/mL (5-125); PROTEIN TOTAL,TP 6.3 g/dL (6.4-8.2); SODIUM,NA 142 mmol/L (140-148); TROPONIN I HIGH SENSITIVITY 17.4 pg/mL (<=60.3)
[2024-09-22 10:12] LABS: APPEARANCE,URINE CLEAR (CLEAR); GLUCOSE,URINE NEGATIVE (NEGATIVE); OCCULT BLOOD,URINE NEGATIVE (NEGATIVE)
[2024-09-22 10:15] LABS: AMPHETAMINES SCREEN, URINE NEGATIVE (NEGATIVE); METHADONE SCREEN, URINE NEGATIVE (NEGATIVE); METHAMPHETAMINES SCREEN, URINE NEGATIVE (NEGATIVE); OXYCODONE SCREEN,URINE NEGATIVE (NEGATIVE); PROPOXYPHENE SCREEN,URINE NEGATIVE (NEGATIVE); THC SCREEN,URINE 50 NG/ML NEGATIVE (NEGATIVE)
[2024-09-22] MEDS ORDERED: Nitroglycerin 0.4 MG Tab.SL SL PRN (10:23)
[2024-09-22 10:31] LABS: SQUAMOUS EPITHELIAL CELLS,UR NOT SEEN /HPF; UROTHELIAL CELLS,URINE NOT SEEN /HPF
[2024-09-22 11:29] VITALS: BP 167/95
== END 2024-09-22 11:49 | disposition critical access hospital (66) ==
LOC: JP.ED 08:16
DX: I20.0 Unstable angina (principal); I10 Essential (primary) hypertension; E78.00 Pure hypercholesterolemia, unspecified; R06.9 Unspecified abnormalities of breathing; Z90.49 Acquired absence of other specified parts of digestive tract; Z88.7 Allergy status to serum and vaccine; Z79.899 Other long term (current) drug therapy
CPT/HCPCS: 36415; 71045; 71045-26; 80053; 80305-QW; 81001; 83605; 83880; 84484; 85027; 85379; 85610; 93005; 93010; 96360; 99285; 99285-25; A9270-GY; J7030